=== PATIENT | male | born 1970 | race Caucasian/White ===

== ENCOUNTER 2019-09-17 10:32 | Emergency (ER) | payer BC ==
[2019-09-17] MEDS ORDERED: Fluorescein Sodium TOPICAL* 1 MG TEST STRIP OPHTHALMIC ONE (10:58)
[2019-09-17] MEDS ORDERED: Polymyx/Trimethoprim OPTH* 10 ML BTL RIGHT EYE SCH (11:30)
[2019-09-17 11:37] VITALS: BP 124/72
--- NOTE | 2019-09-17 11:40 | ED ---
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 He was seen at urgent care, stating "they did not see anything" and discharged him home. They did not send him home with antibiotics. He states he does not know of a foreign body in the eye although he feels there is an irritation on the most lateral portion of the eye. Denies any excessive tearing from the eye or erythema. Denies any pain around the eye or swelling around the eye. He has not been taking anything [id number] drops or other medications for relief. He is also endorsing today of having joint aches throughout. He did have a Lyme test recently completed which was negative. He states he feels this is osteoarthritis and has an appointment with a new PCP next week. He takes ibuprofen daily for his osteoarthritis symptoms. He denies any rash or fevers. - History of Current Complaint Chief Complaint: EDEyeProblem Time Seen by Provider: 09/17/19 10:44 Hx Obtained From: Patient Onset/Duration: Sudden Onset Severity: Moderate - Epiglottits Risk Factors Epiglottis Risk Factors: Negative - Allergies/Home Medications Allergies/Adverse Reactions: Allergies Allergy/AdvReac Type Severity Reaction Status Date / Time No Known Allergies Allergy Verified 09/17/19 10:38 PMH/Surg Hx/FS Hx/Imm Hx Previously Healthy: Yes Endocrine/Hematology History: Denies: Hx Anticoagulant Therapy Respiratory History: Reports: Other Respiratory Problems/Disorders Sensory History: Denies: Hx Contacts or Glasses Opthamlomology History: Denies: Hx Contacts or Glasses - Immunization History Date of Tetanus Vaccine: Unk Date of Influenza Vaccine: None Hx Pertussis Vaccination: No Immunizations Up to Date: Yes Infectious Disease History: No Infectious Disease History: Denies: Traveled Outside the [place] in Last 30 Days - Social History Occupation: Employed Full-time Lives: With Family Alcohol Use: Occasionally Hx Substance Use: Yes Substance Use Type: Reports: Excessive Caffeine Hx Tobacco Use: Yes Smoking Status (MU): Current Some Day Smoker Review of Systems Negative: Fever, Chills, Fatigue, Skin Diaphoresis Positive: Photophobia. Negative: Blurred Vision, Diplopia, Drainage, Erythema Negative: Chest Pain Negative: Abdominal Pain, Vomiting Genitourinary: Negative Positive: no symptoms reported, see HPI Negative: Arthralgia, Myalgia Skin: Negative Neurological: Negative All Other Systems Reviewed And Are Negative: Yes Physical Exam Triage Information Reviewed: Yes Vital Signs On Initial Exam: Initial Vitals Temp Pulse Resp BP Pulse Ox 97.7 F 77 16 122/80 100 09/17/19 10:34 09/17/19 10:34 09/17/19 10:34 09/17/19 10:34 09/17/19 10:34 Vital Signs Reviewed: Yes Appearance: Positive: Well-Appearing, Well-Nourished Skin: Positive: Warm, Skin Color Reflects Adequate Perfusion Head/Face: Positive: Normal Head/Face Inspection Eyes: Positive: EOMI, GABI, Conjunctiva Clear. Negative: Conjunctiva Inflammed , Discharge Neck: Positive: Supple, No Lymphadenopathy Respiratory/Lung Sounds: Positive: Clear to Auscultation, Breath Sounds Present Cardiovascular: Positive: RRR, Pulses are Symmetrical in both Upper and Lower Extremities Musculoskeletal: Positive: Strength/ROM Intact Neurological: Positive: Speech Normal Psychiatric: Positive: Affect/Mood Appropriate AVPU Assessment: Alert Procedures - Sedation Patient Received Moderate/Deep Sedation with Procedure: No Diagnostics - Vital Signs Vital Signs Temp Pulse Resp BP Pulse Ox 09/17/19 10:34 97.7 F 77 16 122/80 100 - Laboratory Lab Statement: Any lab studies that have been ordered have been reviewed, and results considered in the medical decision making process. EENT Course/Dx - Course Course Of Treatment: During this course of treatment, the patient is evaluated for sensation of right eye foreign body. Patient states he has an unknown foreign body in the right eye, but denies any excessive tearing from the eye or erythema to the eye. Denies any swelling around the eye, fevers, sweats, chills. Patient does also endorse osteoarthritis throughout which he has been taking ibuprofen. He has a follow-up appointment to a PCP next week regarding this complaint. Fluorescein with lópez lamp used. No uptake seen. Able to secure an appt with Dr. Lopez at 2:15pm today. Patient given polymyxin drops. - Diagnoses Provider Diagnoses: Eye pain Discharge ED - Sign-Out/Discharge Documenting (check all that apply): Patient Departure - Discharge Plan Condition: Fair Disposition: HOME Patient Education Materials: Corneal Abrasion (ED), Eye Foreign Body (ED) Referrals: Saira Cadet NP [Primary Care Provider] - (Follow up beatris) Ehsan Lopez MD [Medical Doctor] - (Today appt at 2:15pm) Cleveland Bowlse MD [Medical Doctor] - Additional Instructions: Polymyxin drops every 3 hours while awake Please follow up with Dr. Cuevas at 2:15pm today Please follow up with your new PCP or you may also try to call Dr. Bowles's office (rheumatology) although I am not sure they will take you without a referral from a primary Continue to take your ibuprofen 600mg three times daily OR Aleve 2 tabs every 12 hours - do not take both - Billing Disposition and Condition Condition: FAIR Disposition: Home
== END 2019-09-17 11:30 | disposition home or self-care (01) ==
LOC: ED 10:32
DX: H57.11 Ocular pain, right eye (principal); H54.61 Unqualified visual loss, right eye, normal vision left eye; Z72.0 Tobacco use
CPT/HCPCS: 99282; A9270-GY